=== PATIENT | male | born 1965 | race Caucasian/White ===

== ENCOUNTER 2021-04-24 12:53 | Emergency (ER) | payer BC ==
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
[2021-04-24] MEDS ORDERED: Sodium Chloride 0.9% 10 ML Syringe FLUSH PRN (13:13)
[2021-04-24] MEDS ORDERED: Iopamidol 612 MG/ML 50 ML SDV IVPUSH ONE (13:13)
[2021-04-24] MEDS ORDERED: Iopamidol 612 MG/ML 100 ML Bottle IVPUSH ONE (13:13)
--- NOTE | 2021-04-24 14:10 | CT ---
CT chest Technique: Multiple axial sections were obtained from above the lung apices inferiorly through the lung bases. Intravenous contrast was utilized. Reconstructed coronal and sagittal images were obtained. Comparison: No prior chest imaging is available. Findings: Thoracic aorta shows no aneurysm. Mediastinum shows no adenopathy. No mediastinal hematoma is seen. Axillary regions show no adenopathy. No pericardial thickening is seen. Heart is slightly enlarged. Lungs are clear with no acute parenchymal change. No pleural effusions or pneumothorax is seen. Bone window settings were reviewed. Fracture is noted within the posterolateral right fourth rib with very minimal displacement. No additional fracture is definitely appreciated. Impression: 1. Minimally displaced fracture within the posterolateral right fourth rib. 2. Other portions of the contrast-enhanced chest CT appear unremarkable. Diagnostic code #3 CT abdomen and pelvis Technique: Multiple axial sections were obtained from above the dome of the diaphragm inferiorly through the pubic symphysis. Intravenous contrast was utilized. No oral contrast has been given. Delayed images were obtained through the bladder. Reconstructed coronal and sagittal images were obtained. Comparison: No prior abdominal imaging is available. Findings: Liver contains no focal parenchymal abnormality. Spleen size is normal. Adrenal glands show no nodule. Pancreas appears within normal limits. Gallbladder contains no calcified gallstones. Kidneys show symmetric contrast enhancement. No hydronephrosis or mass is seen. Delayed images show contrast within the distal ureters and within the bladder. Abdominal aorta shows no aneurysm. Mild atherosclerotic calcification is seen. Small retroperitoneal lymph nodes are seen which are felt to be within normal limits. No pelvic mass or adenopathy is seen. Fat-containing bilateral inguinal hernias are noted. Appendix is not visualized. No free fluid or inflammatory change is seen. Bone window settings were reviewed which show no acute osseous abnormality. Vacuum phenomenon is noted within the sacroiliac joints. Minimal degenerative change is noted within the thoracic spine. Impression: 1. Findings believed to be incidental as described above. 2. Nothing acute is appreciated on CT study of the abdomen and pelvis. Diagnostic code #2
== END 2021-04-24 15:10 | disposition home or self-care (01) ==
LOC: JD.ED 12:53
DX: S22.31XA Fracture of one rib, right side, initial encounter for closed fracture (principal); W17.82XA Fall from (out of) grocery cart, initial encounter
CPT/HCPCS: 36415; 71260; 74177; 80053; 80307; 84484; 85025; 99284; Q9967